=== PATIENT | male | born 1985 | race Two or more races ===

== ENCOUNTER 2017-05-21 22:48 | Emergency (ER) | payer SELFPAY ==
[2017-05-22] MEDS ORDERED: LIDOCAINE 0.5%/EPINEPHRINE INJ 50 ML VIAL INJ ONE (00:24)
[2017-05-22] MEDS ORDERED: OXYCODONE-ACETAMINOPHEN 5-325 MG TABLET PO ONE (00:25)
[2017-05-22] MEDS ORDERED: PROMETHAZINE HCL 25 MG TABLET PO ONE (00:25)
--- NOTE | 2017-05-22 00:28 | ER Document Report ---
ED Skin Rash/Insect Bite/Abscs - General Chief Complaint: Insect Bite Stated Complaint: POSSIBLE SPIDER BITE RIGHT LEG Time Seen by Provider: 05/22/17 00:18 Notes: Patient is a 31-year-old male who comes emergency department for chief complaint of a tender area on his right posterior thigh, he states this started out as a bump but has worsened into a hard and red area. He states he had chills over the past couple days. He denies history of diabetes, MRSA, or abscesses. He denies history of the same. He denies IV drug abuse. TRAVEL OUTSIDE OF THE [place] IN LAST 30 DAYS: No - Related Data Allergies/Adverse Reactions: No Known Allergies Allergy (Verified 05/22/17 02:25) Past Medical History - General Information source: Patient - Social History Smoking Status: Never Smoker Drug Abuse: None Lives with: Family Family History: Reviewed & Not Pertinent Patient has suicidal ideation: No Patient has homicidal ideation: No - Medical History Medical History: Negative Renal/ Medical History: Denies: Hx Peritoneal Dialysis Surgical Hx: Negative - Immunizations Immunizations up to date: Yes Hx Diphtheria, Pertussis, Tetanus Vaccination: Yes Review of Systems - Review of Systems Constitutional: No symptoms reported EENT: No symptoms reported Cardiovascular: No symptoms reported Respiratory: No symptoms reported Gastrointestinal: No symptoms reported Genitourinary: No symptoms reported Male Genitourinary: No symptoms reported Musculoskeletal: See HPI Skin: See HPI Hematologic/Lymphatic: No symptoms reported Neurological/Psychological: No symptoms reported Physical Exam - Vital signs Vitals: Temp Pulse Resp BP Pulse Ox 98.8 F 85 16 126/73 H 100 05/21/17 23:14 05/21/17 23:14 05/21/17 23:14 05/21/17 23:14 05/21/17 23:14 Interpretation: Normal - General General appearance: Appears well, Alert In distress: None - HEENT Head: Normocephalic, Atraumatic Eyes: Normal Pupils: PERRL - Respiratory Respiratory status: No respiratory distress Chest status: Nontender Breath sounds: Normal Chest palpation: Normal - Cardiovascular Rhythm: Regular Heart sounds: Normal auscultation Murmur: No - Abdominal Inspection: Normal Distension: No distension Bowel sounds: Normal Tenderness: Nontender Organomegaly: No organomegaly - Back Back: Normal, Nontender - Extremities General upper extremity: Normal inspection, Nontender, Normal color, Normal ROM , Normal temperature General lower extremity: Other - Tender, indurated, fluctuant area with a small darkened head on the right posterior mid thigh. Some surrounding cellulitis noted in a twenty-nine palms. No streaking away from the area. Normal LE exam otherwise. - Neurological Neuro grossly intact: Yes Cognition: Normal Orientation: AAOx4 Leyla Coma Scale Eye Opening: Spontaneous Leyla Coma Scale Verbal: Oriented [place] Coma Scale Motor: Obeys Commands Leyla Coma Scale Total: 15 Speech: Normal Motor strength normal: LUE, RUE, LLE, RLE Sensory: Normal - Psychological Associated symptoms: Normal affect, Normal mood - Skin Skin Temperature: Warm Skin Moisture: Dry Skin Color: Normal Course - Re-evaluation Re-evalutation: Abscess clean, opened, drained, cleaned again, dressed. Because of surrounding cellulitis patient placed on antibiotics. Packing was placed because of the depth of the abscess. Patient recommended to be seen in 2 days for recheck, however he states he will most likely take out the packing himself but he states that he will keep the area clean, he will take the antibiotics, and he will monitor the area for any worsening symptoms, agrees to return if it worsens in any way. - Vital Signs Vital signs: Temp Pulse Resp BP Pulse Ox 98.8 F 77 18 141/81 H 99 05/21/17 23:14 05/22/17 02:23 05/22/17 02:23 05/22/17 02:23 05/22/17 02:23 Procedures - Incision and Drainage Right posterior thigh Type: Single Anesthetic type: 1% Lidocaine w/epi mL's of anesthetic: 8 Blade size: 11 I&D procedure: Shurclens applied, Iodoform packing placed, Sterile dressing applied Incision Method: Incision made by scalpel Notes: Area cleansed with surgical cleanser, anesthesia provided with 0.5% lidocaine with epinephrine, incision made with about 4 cc of purulent material expressed, small amount of blood, area explored, irrigated, packed, dressed Discharge - Discharge Clinical Impression: Abscess Cellulitis Qualifiers: Site of cellulitis: extremity Site of cellulitis of extremity: lower extremity Laterality: right Qualified Code(s): L03.115 - Cellulitis of right lower limb Condition: Stable Disposition: HOME, SELF-CARE Additional Instructions: The abscess has been drained. The packing needs to come out in 2 days. Keep absorbing dressing over the area, clean with soap and water, avoid soaking. Take the antibiotics as prescribed. Follow-up with primary care. Return immediately for any worsening symptoms including spreading redness, fever, or any other concerning symptoms. Prescriptions: Cephalexin Monohydrate [Keflex 500 mg Capsule] 500 mg PO QID #28 capsule Sulfamethoxazole/Trimethoprim [Bactrim Ds Tablet] 1 each PO BID #14 tablet Forms: Return to Work
[2017-05-22] MEDS ORDERED: SULFAMETHOXAZOLE/TRIMETHOPRIM 800-160 MG TABLET PO ONE (02:05)
[2017-05-22] MEDS ORDERED: CEPHALEXIN 500 MG CAPSULE PO ONE (02:05)
[2017-05-22 02:25] VITALS: BP 141/81
== END 2017-05-22 02:23 | disposition home or self-care (01) ==
LOC: EDBD 22:48 → ER 22:48
PROC: 0H9HXZZ Drainage of Right Upper Leg Skin, External Approach (ICD-10-PCS; principal; 2017-05-21)
DX: L02.415 Cutaneous abscess of right lower limb (principal); L03.115 Cellulitis of right lower limb; R68.83 Chills (without fever)
CPT/HCPCS: 99283; 10060; J3490; A6266

== ENCOUNTER 2017-05-24 09:16 | Emergency (ER) | payer SELFPAY ==
[2017-05-24 09:26] VITALS: BP 128/77
--- NOTE | 2017-05-24 09:55 | ER Document Report ---
HPI - HPI Patient complains to provider of: wound check Pain Level: 3 Context: Patient is a 31-year-old male who returns emergency department for a wound check after being evaluated on May 21 for a right posterior thigh abscess. Patient states it pain, swelling, redness is improved. Has been taking his antibiotics as prescribed. Denies any fever, chills. - CARDIOVASCULAR Cardiovascular: DENIES: Chest pain - DERM Skin Color: Normal Past Medical History - Social History Smoking Status: Never Smoker Chew tobacco use (# tins/day): No Frequency of alcohol use: Occasional Drug Abuse: None Family History: Reviewed & Not Pertinent Renal/ Medical History: Denies: Hx Peritoneal Dialysis Surgical Hx: Negative - Immunizations Immunizations up to date: Yes Hx Diphtheria, Pertussis, Tetanus Vaccination: Yes Vertical Provider Document - CONSTITUTIONAL Agree With Documented VS: Yes Exam Limitations: No Limitations General Appearance: WD/WN, No Apparent Distress - INFECTION CONTROL TRAVEL OUTSIDE OF THE [place] IN LAST 30 DAYS: No - RESPIRATORY O2 Sat by Pulse Oximetry: 99 - MUSCULOSKELETAL/EXTREMETIES Musculoskeletal/Extremeties: MAEW, FROM, Non-Tender - NEURO Level of Consciousness: Awake, Alert, Appropriate Motor/Sensory: No Motor Deficit, No Sensory Deficit - DERM Integumentary: Warm, Dry, Abscess - Area of induration with central incision located on the right posterior thigh. Nontender to palpation. Surrounding induration of approximately 8 cm in diameter. No retained material within the abscess. Approximately 10 cm of packing removed. Irrigated with saline. Course - Re-evaluation Re-evalutation: 05/24/17 09:57 Patient is a 31-year-old male who is hemodynamic stable, no distress afebrile. Approximately 10 cc of packing was removed with purulent material noted. No evidence of retained material. A sterile dressing applied. Patient instructed to complete his antibiotics as prescribed and given strict return precautions. Patient and family expressed understanding and agreeable with plan. Skin was marked to identify induration and erythema. - Vital Signs Vital signs: Temp Pulse Resp BP Pulse Ox 98.4 F 74 16 128/77 H 99 05/24/17 09:25 05/24/17 09:25 05/24/17 09:25 05/24/17 09:25 05/24/17 09:25 Discharge - Discharge Clinical Impression: Wound check, abscess Condition: Good Disposition: HOME, SELF-CARE Additional Instructions: Please continue to take your antibiotics as prescribed Please return to the emergency department with any worsening signs of redness, fever, chills, pain.
== END 2017-05-24 10:15 | disposition home or self-care (01) ==
LOC: ER 09:16
DX: L02.415 Cutaneous abscess of right lower limb (principal); Z48.01 Encounter for change or removal of surgical wound dressing
CPT/HCPCS: 99282